=== PATIENT | male | born 1975 | race Caucasian/White ===

== ENCOUNTER → 2020-06-04 | Outpatient (CLI) | payer OTHER ==
--- NOTE | 2020-06-04 15:21 | Diagnostic Imaging Report ---
INDICATION: Left ureteral calculus. COMPARISON: None FINDINGS: Two supine frontal radiographic views of the abdomen were obtained. There is extraosseous calcification projecting over the left L4 transverse process suspicious for ureteral calculus. It measures 8 x 4 mm. Additional extraosseous calcifications are also noted projecting over the left hemipelvis, but may be on the basis of small phlebolith. No unexpected radiopaque foreign bodies are seen. Small bowel loops are nondistended. Moderate stool is noted within the ascending colon. IMPRESSION: 1. Extraosseous calcification on the left suspicious for ureteral calculus. Dictated by: Dictated on workstation # [id number]
== END ==
LOC: RAD 14:07
PROVIDERS: ATTEND Urology
DX: N20.1 Calculus of ureter (principal)
CPT/HCPCS: 74018

== ENCOUNTER → 2020-06-08 | Outpatient (CLI) | payer OTHER ==
[~2020-06-08] MED LIST: IBUP-1780 PO; TMSL.4C PO
--- NOTE | 2020-06-08 14:46 | Diagnostic Imaging Report ---
Indication: Left ureteral stone. Time of exam: 1:08 PM Correlation is made with prior radiograph from 06/04/2020. Previously noted ovoid calcific density adjacent to the L4 transverse process on the left is again noted and in similar position. Left pelvic calcification is unchanged. The bowel gas pattern is unremarkable. There are postoperative changes of left hip. IMPRESSION: Previously noted ovoid calcification projects just inferior to the left L4 transverse process, similar to prior. This may indeed be ureteral. Overall appearance of the abdomen is similar to examination from 4 days earlier. Dictated by: Dictated on workstation # [id number]
== END ==
LOC: RAD 12:52
PROVIDERS: ATTEND Urology
DX: N20.1 Calculus of ureter (principal)
CPT/HCPCS: 74018

== ENCOUNTER 2020-06-15 05:26 | Outpatient (RCR) | payer OTHER ==
[~2020-06-15] VITALS: Ht 167.7 cm; Wt 90.9 kg
== END 2020-06-15 10:17 | disposition home or self-care (01) ==
LOC: PREOP 05:26
PROVIDERS: ATTEND Urology
DX: Z01.812 Encounter for preprocedural laboratory examination (principal); Z20.828 Contact with and (suspected) exposure to other viral communicable diseases
CPT/HCPCS: 87635

== ENCOUNTER 2020-06-17 06:03 | Day surgery (SDC) | payer OTHER ==
[2020-06-17] VITALS (9 sets, daily range): BP systolic 100–118; BP diastolic 66–81
[~2020-06-17] VITALS: Ht 167.7 cm; Wt 90.9 kg
[2020-06-17] MEDS ORDERED: ONDANSETRON 4 MG/2 ML (SDV) Z0FRAN ONE (06:57)
[2020-06-17] MEDS ORDERED: LIDOCAINE PF 2% 5 ML (XYLOCAINE) VIAL ONE (06:57)
[2020-06-17] MEDS ORDERED: proPOfol 200 MG/20 ML (DIPRIVAN) VIAL IV ONE ×2 (06:57→08:27)
[2020-06-17] MEDS ORDERED: FUROSEMIDE 40 MG/4 ML INJ (LASIX) ONE (06:57)
[2020-06-17] MEDS ORDERED: KETOROLAC 30 MG/ML VIAL ONE (06:57)
[2020-06-17] MEDS ORDERED: MIDAZOLAM 2 MG/2 ML (VERSED) VIAL ONE (06:58)
[2020-06-17] MEDS ORDERED: fentaNYL INJECTION 100 MCG/2 ML AMP ONE (06:58)
[2020-06-17] MEDS ORDERED: cefTRIAXone FOR IV USE 1,000 MG in WATER (STERILE) FOR INJECTION 10 ML IV ONE (07:00)
[2020-06-17] MEDS ORDERED: SULF1TAB35 PO (07:03)
[2020-06-17] MEDS ORDERED: OXYC-471 PO (07:08)
[2020-06-17] MEDS: LACTATED RINGERS 1,000 ML IV PRN ×2 (07:09→07:45)
[2020-06-17] MEDS ORDERED: CATHETER FLUSH 10 ML SYR IV PRN (07:15)
--- NOTE | 2020-06-17 07:28 | Progress Note-Pre Operative ---
Pre-Operative Progress Note H&P Reviewed The H&P was reviewed, patient examined and no changes noted. Date Seen by Provider: Jun 17, 2020 Time Seen by Provider: 07:27 Date H&P Reviewed: Jun 17, 2020 Time H&P Reviewed: 07:27 Pre-Operative Diagnosis: LT DISTAL URETERAL STONE ALFA PITTMAN MD Jun 17, 2020 07:28
--- NOTE | 2020-06-17 07:28 | Progress Note-Post Operative ---
Post-Operative Progess Note Surgeon (s)/Gray Tender (s) Surgeon ALFA PITTMAN MD Gray Tender: NONE Pre-Operative Diagnosis LT DISTAL URETERAL STONE AND WIDE CALIBER URETHRAL STRICTURE Post-Operative Diagnosis SAME Procedure & Operative Findings Date of Procedure 06/17/20 Procedure Performed/Findings CYSTOSCOPY, LT URETEROSCOPY, INSERTION OF LT URETERAL CATHETER, LT RETROGRADE UROGRAM, AND LT ESWL Anesthesia Type GENERAL Estimated Blood Loss Estimated blood loss (mL): NONE Specimens/Packing Specimens Removed NONE Packing: NONE ALFA PITTMAN MD Jun 17, 2020 07:28
--- NOTE | 2020-06-17 07:30 | Discharge Inst-Urology ---
Discharge Inst-Urology Reconcile Patient Problems Problems Reviewed?: Yes Final Diagnosis LT DISTAL URETERAL STONE Patient Instructions/Follow Up Plan/Assessment/Instructions Please make appointment to been seen in office in 2 weeks. KUB prior to it KUB on way home has slip for KUB in 2 weeks, and Rx for medicines Post ESWL instructions Increase oral fluids for 48 hours and then as needed. Diet and Activity as tolerated. If questions or concerns contact your physician Or seek help at emergency department. ALFA PITTMAN MD Jun 17, 2020 07:30
--- NOTE | 2020-06-17 07:55 | Diagnostic Imaging Report ---
INDICATION: Left flank pain. Comparison with 06/08/2020 exam. FINDINGS: The oval calcification previously noted just below the transverse process of L4 on the left has transited distally and is now within the mid pelvis. There is question of an additional tiny calcification linear in nature measuring 5 x 2 mm overlying the lower pole left kidney. No calculi seen overlying the right kidney or ureter. IMPRESSION: 1. The calculus has transited from the L4 level now into the mid pelvis within the left ureter. 2. Additional small calcification noted overlying the lower pole calyx left kidney on today's exam. Dictated by: Dictated on workstation # [id number]
[2020-06-17] MEDS ORDERED: ROCURONIUM 10 MG/ML 5 ML SYRINGE IV ONE ×2 (07:58→09:39)
[2020-06-17] MEDS ORDERED: SUCCINYLCHOLINE INJ 100 MG/5 ML SYR/VIAL ONE (08:27)
[2020-06-17] MEDS ORDERED: RT-ALBUTEROL INHALER HFA (VENTOLIN HFA) 18 GM IH ONE (09:01)
[2020-06-17] MEDS ORDERED: GLYCOPYRROLATE 0.2 MG/ML (ROBINUL) 2 ML VIAL ONE (09:04)
[2020-06-17] MEDS ORDERED: NEOSTIGMINE 3 MG/3 ML VIAL ONE (09:04)
[2020-06-17] MEDS ORDERED: IOPAMIDOL 61% 30 ML (ISOVUE 300) VIAL ONE (09:06)
[2020-06-17] MEDS ORDERED: SEVOFLURANE (ULTANE) 15 ML INHAL SOLN ONE (09:18)
[2020-06-17] MEDS ORDERED: ONDANSETRON 4 MG/2 ML (SDV) Z0FRAN IVP PRN (09:45)
[2020-06-17] MEDS ORDERED: MEPERIDINE (DEMEROL) INJ 50 MG/ML IVP ONE (09:45)
[2020-06-17] MEDS ORDERED: fentaNYL INJECTION 100 MCG/2 ML AMP IVP ONE (09:45)
[2020-06-17] MEDS ORDERED: morphine INJ 10 MG/ML 1ML (SYR OR VIAL) IVP ONE (09:45)
[2020-06-17] MEDS ORDERED: TMSL.4C PO (10:03)
[2020-06-17] MEDS ORDERED: LEVAQUIN PO (10:03)
[2020-06-17] MEDS ORDERED: PHEN-640 PO (10:03)
[2020-06-17] MEDS ORDERED: HYDR-3870 PO (10:03)
[2020-06-17] MEDS ORDERED: PHENAZOPYRIDINE 100 MG (PYRIDIUM) TABLET ONE (10:23)
[2020-06-17] MEDS ORDERED: HYDROcodone/APAP 5 MG/325 MG (LORTAB) TAB ONE (10:23)
[2020-06-17] MEDS ORDERED: HYDROcodone/APAP 5 MG/325 MG (LORTAB) TAB PO ONE (10:30)
[2020-06-17] MEDS ORDERED: PHENAZOPYRIDINE 100 MG (PYRIDIUM) TABLET PO ONE (10:30)
--- NOTE | 2020-06-17 11:52 | Diagnostic Imaging Report ---
INDICATION: Status post left ESWL. Time of exam 11:36 a.m. Correlation is made with prior radiograph earlier the same day. There has been fragmentation of left pelvic calcification, status post lithotripsy. This remains in the region of the distal left ureter. There is some increased density noted along the left psoas muscle in the inferior pole of the left kidney, exact etiology indeterminate. Bowel gas pattern is unremarkable. Lower pole calculus is again noted on the left. IMPRESSION: Fragmentation of distal left ureteric calculus, status post lithotripsy. Dictated by: Dictated on workstation # [id number]
--- NOTE | 2020-06-17 12:56 | OPERATIVE REPORT ---
DATE OF SERVICE: 06/17/2020 PREOPERATIVE DIAGNOSIS: Left distal ureteral stone. POSTOPERATIVE DIAGNOSES: 1. Left distal ureteral stone. 2. Wide caliber urethral stricture. OPERATION PERFORMED: Cystoscopy, left ureteroscopy, insertion of left ureteral catheter, left ESWL and left retrograde urogram. SURGEON: Jostin Pittman MD ANESTHESIA: General. COMPLICATIONS: None. DESCRIPTION OF PROCEDURE: Under satisfactory general anesthesia, the patient in lithotomy position, genitalia were prepped and draped in the usual sterile fashion. Cystoscope was introduced under vision. There was a wide caliber stricture distal to the sphincter accommodating the scope easily. The prostate revealed some enlargement with some medium bar. Bladder was entered, it was essentially normal except for sluggish efflux on the left ureteral orifice. No foreign body, bladder tumor or stone visualized. Using the foroblique lens, I dilated the left ureteral orifice intramural portion to accommodate a 6.9 Nepalese semi-rigid ureteroscope. At that point, the patient had laryngeal spasm, so I had to remove the ureteroscope. The patient had some vomitus that was suctioned by anesthesia and was converted from LMA to endotracheal tube and suctioned well, I tried to go back again with the ureteroscope, I could not. There was quite a bit of spasm of the ureter, so I discontinued further attempt. I reinserted the cystoscope and passed a 6-Nepalese ureteral catheter, bypassed the stone all the way to the left renal pelvis, left there, emptied the bladder, removed the cystoscope, moved the patient on the ESWL table, localized the stone, which was in the same place, I went ahead and delivered first 2000 shocks. Then, I injected some contrast. There was excellent fragmentation of the stone and pulled out the urethral catheter. We continued delivering up to 3000 shocks at kV of 8, injected more contrast and the ureter was wide open. The contrast was flowing very nicely and very easily to the bladder filling it up. There was no more filling defect visualized at all. The patient received 40 mg of Lasix and 30 mg of Toradol at the end of the procedure. He tolerated the procedure and anesthesia well and was sent to recovery room in stable condition. Job ID: [id number] DocumentID: [id number] Dictated Date: 06/17/2020 09:10:27 Guide Travel Date: 06/17/2020 12:55:23 Dictated By: JOSTIN PITTMAN MD
== END 2020-06-17 11:45 | disposition home or self-care (01) ==
LOC: SDC 06:03
PROVIDERS: ATTEND Urology
DX: N20.1 Calculus of ureter (principal); N13.5 Crossing vessel and stricture of ureter without hydronephrosis; G47.33 Obstructive sleep apnea (adult) (pediatric); F17.210 Nicotine dependence, cigarettes, uncomplicated; E66.9 Obesity, unspecified; Z68.32 Body mass index [BMI] 32.0-32.9, adult; Z79.899 Other long term (current) drug therapy
CPT/HCPCS: 74018; 76000; 87081